=== PATIENT | male | born 1975 | race Caucasian/White ===

== ENCOUNTER 2023-10-01 11:13 | Outpatient (REF) | payer MEDICAID, SELFPAY ==
[2023-10-01 13:39] LABS: Anion Gap 15 (12-20); Blood Urea Nitrogen 12 mg/dL (9-16); Calcium 10.1 mg/dL (8.4-10.2); Carbon Dioxide 28 mmol/L (22-29); Chloride 100 mmol/L (96-108); Estimated Glomerular Filt Rate > 60; Glucose Random 168 mg/dL (60-115); Potassium 4.1 mmol/L (3.3-5.1); Sodium 139 mmol/L (135-145)
== END 2023-10-01 11:14 | disposition home or self-care (01) ==
LOC: HO.HHCL 11:13
PROVIDERS: Visit Provider Family Medicine
DX: I10 Essential (primary) hypertension (principal)
CPT/HCPCS: 36415; 80048

== ENCOUNTER 2024-01-21 10:44 | Outpatient (REF) | payer MEDICAID, OTHER, SELFPAY ==
[2024-01-21 15:01] LABS: MANUAL DIFF FLAG NO
[2024-01-21 15:04] LABS: Basophils Absolute Auto 0.1 X10*3/uL (0.0-0.2); Basophils Percent Auto 0.8 % (0-2); Eosinophils Absolute Auto 0.2 X10*3/uL (0.0-0.4); Hematocrit 41.5 % (42.0-52.0); Hemoglobin 14.2 g/dl (14.0-18.0); Imm Gran Abs Auto 0.04 X10*3/uL (0.00-0.03); Imm Gran Pct Auto 0.5 % (0.0-0.4); Lymphocytes Absolute Auto 1.9 X10*3/uL (1.2-4.9); Lymphocytes Percent Auto 23.8 % (20-40); Mean Corpuscular HGB Conc 34.2 g/dl (31.0-36.0); Mean Corpuscular Hemoglobin 29.9 pg (27.0-33.0); Mean Corpuscular Volume 87.4 fL (80.0-98.0); Mean Platelet Volume 12.4 fL (9.4-12.4); Monocytes Absolute Auto 0.8 X10*3/uL (0.1-1.2); Monocytes Percent Auto 9.6 % (2-11); Neutrophils Absolute Auto 4.9 x10*3/uL (2.0-8.3); Neutrophils Percent Auto 63.3 % (45-73); Platelet Count 284 X10*3/uL (160-400); Red Blood Count 4.75 X10*6/uL (4.60-5.80); Red Cell Distribution Width 12.6 % (11.0-16.0); White Blood Count 7.8 X10*3/uL (4.8-10.8)
[2024-01-21 15:23] LABS: Estimated Average Glucose 223 mg/dL; Hemoglobin A1c % 9.4 % (<6.0)
[2024-01-21 15:25] LABS: Alanine Aminotransferase 41 U/L (0-40); Albumin Level 4.4 g/dL (3.5-5.0); Alkaline Phosphatase 58 U/L (39-117); Anion Gap 15 (12-20); Aspartate Amino Transferase 23 U/L (5-37); Bilirubin Direct 0.1 mg/dL (0.0-0.5); Bilirubin Total 0.5 mg/dL (0.0-1.0); Blood Urea Nitrogen 15 mg/dL (9-16); Calcium 9.9 mg/dL (8.4-10.2); Carbon Dioxide 26 mmol/L (22-29); Chloride 102 mmol/L (96-108); Cholesterol 211 mg/dL (<200); Estimated Glomerular Filt Rate > 60; Glucose Fasting 152 mg/dL (60-99); HDL Cholesterol 40 mg/dL (>40); LDL Cholesterol Calculated 129 mg/dL (<100); Potassium 3.8 mmol/L (3.3-5.1); Sodium 139 mmol/L (135-145); Total Protein 7.6 g/dL (6.5-8.0); Triglycerides 211 mg/dL (<150)
[2024-01-21 15:30] LABS: Creatinine Urine 172.47 mg/dL; Microalbum/Creatinine Ratio Ur 13.3 ug/mg cr (<30)
[2024-01-21 15:40] LABS: TSH reflex Free T4 0.73 uIU/mL (0.32-4.0)
[2024-01-21 15:42] LABS: PSA,Total (Free>4and<10) 1.02 ng/mL (0.00-4.00)
[2024-01-22 04:48] LABS: HBS Num1 1.76 mIU/mL (0-7.99); HBc Num1 5.09 S/CO (0.00-0.79); HBsAGNum1 0.27 S/CO (0.00-0.99); Hepatitis A Antibody IgM 0.24 Index (0-0.79); Hepatitis B Surface Antigen Negative (Negative); ~HepC Num1 0.09 S/CO (0.00-0.79); ~Hepatitis A Antibody IgM Nonreactive (Nonreactive); ~Hepatitis B Surface Antibody NONREACTIVE (Nonreactive); ~Hepatitis C Antibody Nonreactive (Nonreactive)
[2024-01-22 05:33] LABS: HBc Num2 4.96 S/CO; HBc Num3 4.83 S/CO; Hepatitis B Core Antibody Reactive (Nonreactive)
[2024-01-23 08:18] LABS: Hepatitis B Core Antibody IgM NON-REACTIVE (NON-REACTIVE)
== END 2024-01-21 10:45 | disposition home or self-care (01) ==
LOC: HO.CHCLDS 10:44
PROVIDERS: Visit Provider Pediatrics
DX: I10 Essential (primary) hypertension (principal)
CPT/HCPCS: 36415; 80048; 80061; 80076; 82043; 82570; 83036; 84153; 84443; 85025; 86704; 86705; 86706; 86709; 86803; 87340

== ENCOUNTER 2024-04-22 10:42 | Outpatient (REF) | payer MEDICAID, OTHER, SELFPAY ==
[2024-04-22 14:41] LABS: Cholesterol 203 mg/dL (<200); HDL Cholesterol 40 mg/dL (>40); LDL Cholesterol Calculated 140 mg/dL (<100); Triglycerides 119 mg/dL (<150)
== END 2024-04-22 10:43 | disposition home or self-care (01) ==
LOC: HO.CHCLDS 10:42
PROVIDERS: Visit Provider Pediatrics
DX: E11.9 Type 2 diabetes mellitus without complications (principal)
CPT/HCPCS: 36415; 80061

== ENCOUNTER 2025-03-09 10:40 | Outpatient (REF) | payer MEDICAID, OTHER, SELFPAY ==
--- OUTSIDE RECORDS SUMMARY | 2025-03-09 11:22 | XMS_ITS | Encounter Summary ---
Author Organization [employer] Address [address] [facility] [address] [place] [address] Care Team Providers Care Biomass Boiler Operator Name Role Phone Elly Nino MD Primary Care Provider [phone] Encounter Details Date Type Department Care Team (Latest Contact Info) Description 03/09/2025 Travel Social History Tobacco Use Types Packs/Day Years Used Date Smoking Tobacco: Former Cigarettes Smokeless Tobacco: Never Comments:Quit tobacco use in 2011 Alcohol Use Standard Drinks/Week Comments Never 0 (1 standard drink = 0.6 oz pur e alcohol) Depression Answer Date Recorded Patient Health Questionnaire-9 Score 0 01/21/2024 Patient Health Questionnaire-9 Score 0 01/21/2024 Last PHQ-9: Questionnaire Data Not on file 0 01/21/2024 Housing Stability Answer Date Recorded What is your housing situation today? I am not s ure 12/01/[address] you li ve. Do you have problems with any of the following? None of the above 12/01/2024 Food Insecurity Answer Date Recorded Within the past 12 months, y ou worried that your food would run out before you got money to buy more: Never True 01/21/2024 Within the past 12 months,th e food you bought just didn't last and you didn't have enough money to get more: Never True Transportation Answer Date Recorded In the past 12 months, has l ack of transportation kept you from medical appts, meetings, work or from getting things needed for daily living? No 01/21/2024 Utilities Answer Date Recorded In the past 12 months, has t he electric, gas, oil or water company threatened to shut off services in your home? No 01/21/2024 Depression Answer Date Recorded Patient Health Questionnaire-2 Score 0 01/21/2024 Internet Access Answer Date Recorded Internet Access Q1 Yes 12/01/2024 Internet Access Q2 Not on file 12/01/2024 Education Answer Date Recorded What is the highest level of school you have completed or the highest degree you have received? Bachelor's degree (e.g., BA, AB, BS) 01/21/2024 Sex and Gender Information Value Date Recorded Sex Assigned at Male 06/30/2023 10:28 AM EST Legal Sex Male 10:27 AM EST Gender Identity Male 06/30/2023 10:28 AM EST Sexual Orientation Don't know 06/30/2023 10 :28 AM EST documented as of this encounter Plan of Treatment Upcoming Encounters Date Type Department Care Team ([facility] st Contact Info) Description 06/01/2025 1:15 PM EDT Office Visit [facility] [address] [place] [address] Elly Nino MD [address] [place] [address] documented as of this encounter Visit Diagnoses Not on filedocumented in this encounter Additional Health Concerns Assessment Noted Time PHQ-9 Depression Total Score: 0 01/21/20 9:37 AM EDT documented as of this encounter Care Teams Biomass Boiler Operator Relationship Specialty Start Date End Date Elly Nino MD [address] [place] [address] PCP - General Internal Medicine 01/21/24 documented as of this encounter
[2025-03-09 14:12] LABS: MANUAL DIFF FLAG NO
[2025-03-09 14:16] LABS: Hematocrit 38.9 % (42.0-52.0); Hemoglobin 13.8 g/dl (14.0-18.0); Imm Gran Abs Auto 0.04 X10*3/uL (0.00-0.03); Imm Gran Pct Auto 0.6 % (0.0-0.4); Lymphocytes Absolute Auto 1.9 X10*3/uL (1.2-4.9); Mean Corpuscular HGB Conc 35.5 g/dl (31.0-36.0); Mean Corpuscular Hemoglobin 30.7 pg (27.0-33.0); Mean Corpuscular Volume 86.4 fL (80.0-98.0); NRBC Abs Auto 0.000 X10*3/uL (0.0-0.012); NRBC Pct Auto 0.0 /100WBC (0.0-0.2); Platelet Count 256 X10*3/uL (160-400); Red Blood Count 4.50 X10*6/uL (4.60-5.80); White Blood Count 6.8 X10*3/uL (4.8-10.8)
[2025-03-09 14:24] LABS: Hemoglobin A1C 222.3058 umol/L; Total Hemoglobin (HGBA1C) 3606.6251 umol/L
[2025-03-09 14:36] LABS: Alanine Aminotransferase 36 U/L (0-40); Albumin Level 4.7 g/dL (3.5-5.0); Alkaline Phosphatase 47 U/L (39-117); Anion Gap 12 (12-20); Aspartate Amino Transferase 27 U/L (5-37); Blood Urea Nitrogen 16 mg/dL (9-16); Calcium 9.2 mg/dL (8.4-10.2); Carbon Dioxide 28 mmol/L (22-29); Chloride 102 mmol/L (96-108); Cholesterol 205 mg/dL (<200); Estimated Glomerular Filt Rate > 60; HDL Cholesterol 44 mg/dL (>40); Potassium 3.6 mmol/L (3.3-5.1); Sodium 138 mmol/L (135-145); Total Protein 7.5 g/dL (6.5-8.0); Triglycerides 184 mg/dL (<150)
[2025-03-09 14:51] LABS: Microalbum/Creatinine Ratio Ur 8.5 ug/mg cr (<30)
== END 2025-03-09 10:41 | disposition home or self-care (01) ==
LOC: HO.CHCLDS 10:40
PROVIDERS: PCP Pediatrics; Visit Provider Pediatrics
DX: Z12.11 Encounter for screening for malignant neoplasm of colon (principal); E11.9 Type 2 diabetes mellitus without complications
CPT/HCPCS: 36415; 80048; 80061; 80076; 82043; 82570; 83036; 84443; 85025

== ENCOUNTER 2025-06-01 13:49 | Outpatient (REF) | payer MEDICAID, OTHER, SELFPAY ==
[2025-06-02 04:59] LABS: HBS Num1 8.28 mIU/mL (0-7.99)
[2025-06-02 05:41] LABS: HBS Num2 8.08 mIU/mL (0-7.99); HBS Num3 7.98 mIU/mL (0-7.99); ~Hepatitis B Surface Antibody GRAYZONE (Nonreactive)
== END 2025-06-01 13:50 | disposition home or self-care (01) ==
LOC: HO.CHCLDS 13:49
PROVIDERS: Visit Provider Pediatrics
DX: I10 Essential (primary) hypertension (principal); E11.59 Type 2 diabetes mellitus with other circulatory complications; N52.1 Erectile dysfunction due to diseases classified elsewhere; Z23 Encounter for immunization
CPT/HCPCS: 36415; 86706

== ENCOUNTER 2025-06-19 08:57 | Outpatient (REF) | payer MEDICAID, OTHER, SELFPAY | END 2025-06-19 08:58 | disposition home or self-care (01) | LOC: HO.CHCLNP 08:57 | PROVIDERS: PCP Pediatrics; Visit Provider Pediatrics | DX: R12 Heartburn (principal) | CPT/HCPCS: 87338 ==